=== PATIENT | male | born 1960 | race Caucasian/White ===

== ENCOUNTER 2019-01-08 19:49 | Inpatient (IN) | payer BC, OTHER ==
[~2019-01-08] VITALS: Ht 182.9 cm; Wt 95.0 kg
[2019-01-08 19:58] VITALS: Ht 182.9 cm; Wt 95.0 kg
[2019-01-08] MEDS ORDERED: IBUPROFEN 800 MG TAB PO ONE (20:00)
[2019-01-08] MEDS ORDERED: ACETAMINOPHEN 325 MG TAB PO PRN (22:30)
[2019-01-08] MEDS ORDERED: ONDANSETRON 4 MG INJ IV PRN (22:30)
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
[2019-01-09] MEDS ORDERED: ACETAMINOPHEN 325 MG TAB PO PRN
[2019-01-09] MEDS ORDERED: morphine 2 MG INJ IV PRN
[2019-01-09] MEDS ORDERED: ONDANSETRON 4 MG INJ IV PRN
[2019-01-09] MEDS ORDERED: NACL 0.9% 3 ML SYG IV SCH
[2019-01-09] MEDS ORDERED: HYDROCODONE/APAP (5/325) TAB PO PRN
[2019-01-09 00:20] VITALS: BP 106/76; PULSE 85; RESP 14
[2019-01-09] MEDS ORDERED: IBUPROFEN 800 MG TAB PO PRN (01:00)
[2019-01-09 02:30] VITALS: BP 101/58; PULSE 72; RESP 18
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
[2019-01-09 08:00] VITALS: BP 97/58; PULSE 65; RESP 19
[2019-01-09] MEDS: ENOXAPARIN 40 MG/0.4 ML SYG SC SCH (08:59)
[2019-01-09] MEDS ORDERED: ENOXAPARIN 40 MG/0.4 ML SYG SC SCH (09:00)
--- NOTE | 2019-01-09 09:40 | PN ---
Date/Time of Note Date/Time of Note DATE: 01/09/19 TIME: 09:38 Assessment/Plan VTE Prophylaxis SCD applied (from Ns): Yes Pharmacological prophylaxis: LMWH Assessment/Plan Problems: (1) Acetabular fracture Status: Acute Comment: At this time orthopedics has seen him and is made recommendations. Physical therapy is now in the room and working with him and his for the appropriate level of activity and support. If possible I will try and discharge him today. If possible home with an SCD device. Qualifiers: Encounter type: initial encounter Sublocation of acetabulum: unspecified portion of acetabulum Fracture type: closed Fracture alignment: nondisplaced Laterality: right Qualified Codes: S32.401A - Unspecified fracture of right acetabulum, initial encounter for closed fracture Result Diagram: 01/09/1944201/09/19442 Results 24hrs Laboratory Tests Test 01/09/19 04:43 White Blood Count 9.0 Red Blood Count 4.64 L Hemoglobin 14.7 Hematocrit 42.7 Mean Corpuscular Volume 92.0 Mean Corpuscular Hemoglobin 31.7 Mean Corpuscular Hemoglobin Concent 34.4 Red Cell Distribution Width 12.8 Platelet Count 173 Mean Platelet Volume 10.1 Immature Granulocytes % 0.300 Neutrophils % 72.1 Lymphocytes % 17.2 Monocytes % 9.6 Eosinophils % 0.4 Basophils % 0.4 Nucleated Red Blood Cells % 0.0 Immature Granulocytes # 0.030 Neutrophils # 6.5 Lymphocytes # 1.6 Monocytes # 0.9 Eosinophils # 0.0 Basophils # 0.0 Nucleated Red Blood Cells # 0.0 Prothrombin Time 16.1 H Prothrombin Time Ratio 1.3 INR International Normalized Ratio 1.28 Activated Partial Thromboplast Time 26.3 Sodium Level 140 Potassium Level 4.2 Chloride Level 106 Carbon Dioxide Level 26 Anion Gap 8 Blood Urea Nitrogen 27 H Creatinine 1.02 Est Glomerular Filtrat Rate mL/min > 60 Glucose Level 103 Calcium Level 8.8 Phosphorus Level 3.6 Magnesium Level 2.0 Total Bilirubin 1.2 Direct Bilirubin 0.00 Indirect Bilirubin 1.2 H Aspartate Amino Transf (AST/SGOT) 35 Alanine Aminotransferase (ALT/SGPT) 33 Alkaline Phosphatase 53 Total Protein 6.1 Albumin 3.6 Globulin 2.50 Albumin/Globulin Ratio 1.44 Subjective 24 Hr Interval Summary Free Text/Dictation Patient reports he is having pain at the site and wants to know if he can go home with the SCD device. Constitutional: no complaints Respiratory: no complaints Cardiovascular: no complaints Gastrointestinal: no complaints Genitourinary: no complaints Lymphatic: no complaints Exam/Review of Systems Exam Vitals Vital Signs Date Temp Pulse Resp B/P (MAP) Pulse Ox O2 O2 Flow FiO2 Time Delivery Rate 01/09/19 98.2 65 19 97/58 (71) 97 Room Air 08:00 Intake and Output 01/08/19 01/08/19 01/09/19 1515:00 23:00 07:00 IntakeIntake Total 700 ml OutputOutput Total 400 ml BalanceBalance 300 ml Constitutional: alert, oriented Respiratory: clear to auscultation, normal air movement Extremities: normal pulses, other (Negative Homans) Results Results 24hrs Laboratory Tests Test 01/09/19 04:43 White Blood Count 9.0 Red Blood Count 4.64 L Hemoglobin 14.7 Hematocrit 42.7 Mean Corpuscular Volume 92.0 Mean Corpuscular Hemoglobin 31.7 Mean Corpuscular Hemoglobin Concent 34.4 Red Cell Distribution Width 12.8 Platelet Count 173 Mean Platelet Volume 10.1 Immature Granulocytes % 0.300 Neutrophils % 72.1 Lymphocytes % 17.2 Monocytes % 9.6 Eosinophils % 0.4 Basophils % 0.4 Nucleated Red Blood Cells % 0.0 Immature Granulocytes # 0.030 Neutrophils # 6.5 Lymphocytes # 1.6 Monocytes # 0.9 Eosinophils # 0.0 Basophils # 0.0 Nucleated Red Blood Cells # 0.0 Prothrombin Time 16.1 H Prothrombin Time Ratio 1.3 INR International Normalized Ratio 1.28 Activated Partial Thromboplast Time 26.3 Sodium Level 140 Potassium Level 4.2 Chloride Level 106 Carbon Dioxide Level 26 Anion Gap 8 Blood Urea Nitrogen 27 H Creatinine 1.02 Est Glomerular Filtrat Rate mL/min > 60 Glucose Level 103 Calcium Level 8.8 Phosphorus Level 3.6 Magnesium Level 2.0 Total Bilirubin 1.2 Direct Bilirubin 0.00 Indirect Bilirubin 1.2 H Aspartate Amino Transf (AST/SGOT) 35 Alanine Aminotransferase (ALT/SGPT) 33 Alkaline Phosphatase 53 Total Protein 6.1 Albumin 3.6 Globulin 2.50 Albumin/Globulin Ratio 1.44 Medications Medication Current Medications Ondansetron HCl (Zofran Inj) 4 mg BRIDGE ORDER PRN IV NAUSEA/VOMITING; Start 01/08/19 at 22:30; Stop 01/09/19 at 22:29 Acetaminophen (Tylenol Tab) 650 mg ER BRIDGE PRN PO .MILD PAIN 1-3 OR TEMP; Start 01/08/19 at 22:30; Stop 01/09/19 at 22:29 IV Flush (NS 3 ml) 3 ml PER PROTOCOL IV ; Start 01/09/19 at 00:00 Ondansetron HCl (Zofran Inj) 4 mg Q6H PRN IV NAUSEA/VOMITING; Start 01/09/19 at 00:00 Acetaminophen (Tylenol Tab) 650 mg Q6H PRN PO .PAIN 1-3 OR TEMP; Start 01/09/19 at 00:00 Acetaminophen/ Hydrocodone Bitart ([place] (5/325)) 1 tab Q6H PRN PO .MOD PAIN 4- 6; Start 01/09/19 at 00:00 Acetaminophen/ Hydrocodone Bitart ([place] (5/325)) 2 tab Q6H PRN PO .SEVERE PAIN 7-10; Start 01/09/19 at 00:00 Morphine Sulfate (morphine) 2 mg Q4H PRN IV .SEVERE PAIN 7-10; Start 01/09/19 at 00:00 Enoxaparin Sodium (Lovenox) 40 mg DAILY SC Last administered on 01/09/19at 08:59; Admin Dose 40 MG; Start 01/09/19 at 09:00 Ibuprofen (Motrin) 800 mg Q6H PRN PO MILD PAIN LEVEL 1-3 Last administered on 01/09/19at 03:56; Admin Dose 800 MG; Start 01/09/19 at 01:00 NERY PATEL MD January 09, 2019 09:40
--- NOTE | 2019-01-09 13:45 | PN ---
Date/Time of Note Date/Time of Note DATE: 01/09/19 TIME: 13:35 Assessment/Plan Assessment/Plan Chief Complaint/Hosp Course 58-year-old male with acute less than 2 mm displaced right acetabular fracture involving the anterior wall and column and right sacral ala fracture. He has done better with his second session of physical therapy with touchdown weightbearing precautions. At this time I am recommending continued inpatient physical therapy to ensure that he is safe to go home with weightbearing precautions. Discharge options include going home with home health versus acute rehab unit. Consult order for acute rehab unit placed today. Touchdown weightbearing right lower extremity Pain control Patient to follow-up with orthopedic traumatologist in the next week Subjective 24 Hr Interval Summary Patient doing well No acute events overnight Pain is well controlled Exam/Review of Systems Vital Signs Vitals Vital Signs Date Temp Pulse Resp B/P (MAP) Pulse Ox O2 O2 Flow FiO2 Time Delivery Rate 01/09/19 98.2 65 19 97/58 (71) 97 Room Air 08:00 Intake and Output 01/08/19 01/08/19 01/09/19 1515:00 23:00 07:00 IntakeIntake Total 700 ml OutputOutput Total 400 ml BalanceBalance 300 ml Exam Free Text/Dictation Right lower extremity: Dressing: clean, dry, and intact, no erythema Sensation intact to light touch in a sural, saphenous, deep peroneal, superficial peroneal, medial and lateral plantar nerve distribution. Motor is intact, patient able to dorsiflex and plantarflex ankle and extend and flex great toe. Dorsalis Pedis pulse +2, Brisk capillary refill. Compartments are soft. Calves non-tender to palpation bilaterally. Results Result Diagram: 01/09/19 0443 01/09/19 0443 BREANNA BROWN MD January 09, 2019 13:45
[2019-01-09 16:25] VITALS: BP 112/69; PULSE 86; RESP 18
[2019-01-09] MEDS: ACETAMINOPHEN 500 MG TAB PO PRN (18:01)
[2019-01-09 19:20] VITALS: BP 112/71; PULSE 88; RESP 16
[2019-01-09] MEDS: HYDROCODONE/APAP (5/325) TAB PO PRN (23:28)
[2019-01-10] MEDS: HYDROCODONE/APAP (5/325) TAB PO PRN ×3 (05:40→21:34)
[2019-01-10 08:03] VITALS: BP 116/66; PULSE 87; RESP 18
--- NOTE | 2019-01-10 08:42 | PN ---
Date/Time of Note Date/Time of Note DATE: 01/10/19 TIME: 08:40 Assessment/Plan VTE Prophylaxis Risk score (from Ns)>0 risk: 7 SCD applied (from Ns): Yes Pharmacological prophylaxis: heparin Assessment/Plan Problems: (1) Acetabular fracture Status: Acute Comment: See the notes from Dr. Deshpande, of orthopedic surgery and physical therapy. Continue physical therapy and possible discharge with home physical therapy versus acute rehabilitation unit. Dr. Deshpande has supplied to the patient names of trauma orthopedic surgeons for possible follow-up including at [facility] which is close to the patient's home. Continue ongoing care, no evidence of any untoward complications. Please note in terms of general issues unrelated to this hospitalization I will be dealt with as an outpatient such as colon screening etc. Qualifiers: Encounter type: initial encounter Sublocation of acetabulum: unspecified portion of acetabulum Fracture type: closed Fracture alignment: nondisplaced Laterality: right Qualified Codes: S32.401A - Unspecified fracture of right acetabulum, initial encounter for closed fracture Result Diagram: 01/09/1944201/09/19442 Subjective 24 Hr Interval Summary Free Text/Dictation Patient reports better pain control this morning. Has been up with physical therapy, please see their note Constitutional: no complaints (No fevers chills or sweats) Respiratory: no complaints (Cough no wheezing no shortness of breath) Cardiovascular: no complaints (Chest pain no pleurisy no palpitations no orthopnea no PND) Gastrointestinal: no complaints Musculoskeletal: other (Right hip pain) Exam/Review of Systems Exam Vitals Vital Signs Date Temp Pulse Resp B/P (MAP) Pulse Ox O2 O2 Flow FiO2 Time Delivery Rate 01/10/19 98.0 87 18 116/66 95 Room Air 08:03 (83) Intake and Output 01/09/19 01/09/19 01/10/19 1515:00 23:00 07:00 IntakeIntake Total 580 ml OutputOutput Total 1000 ml 800 ml BalanceBalance -1000 ml -220 ml Constitutional: alert, oriented Respiratory: clear to auscultation, normal air movement Cardiovascular: regular rate and rhythm, nl pulses Extremities: normal pulses, other Medications Medication Current Medications IV Flush (NS 3 ml) 3 ml PER PROTOCOL IV ; Start 01/09/19 at 00:00 Ondansetron HCl (Zofran Inj) 4 mg Q6H PRN IV NAUSEA/VOMITING; Start 01/09/19 at 00:00 Acetaminophen/ Hydrocodone Bitart ([place] (5/325)) 1 tab Q6H PRN PO .MOD PAIN 4- 6 Last administered on 01/10/19at 05:40; Admin Dose 1 TAB; Start 01/09/19 at 00:00 Acetaminophen/ Hydrocodone Bitart ([place] (5/325)) 2 tab Q6H PRN PO .SEVERE PAIN 7-10; Start 01/09/19 at 00:00 Morphine Sulfate (morphine) 2 mg Q4H PRN IV .SEVERE PAIN 7-10; Start 01/09/19 at 00:00 Enoxaparin Sodium (Lovenox) 40 mg DAILY SC Last administered on 01/09/19at 08:59; Admin Dose 40 MG; Start 01/09/19 at 09:00 Ibuprofen (Motrin) 800 mg Q6H PRN PO MILD PAIN LEVEL 1-3 Last administered on 01/09/19at 03:56; Admin Dose 800 MG; Start 01/09/19 at 01:00 Acetaminophen (Tylenol Tab) 1,000 mg Q8 PRN PO MILD PAIN(1-3)OR ELEVATED TEMP Last administered on 01/09/19at 18:01; Admin Dose 1,000 MG; Start 01/09/19 at 15:00 NERY PATEL MD January 10, 2019 08:42
[2019-01-10] MEDS: ENOXAPARIN 40 MG/0.4 ML SYG SC SCH (08:55)
[2019-01-10 14:16] VITALS: BP 115/71; PULSE 90; RESP 18
[2019-01-10] MEDS: ACETAMINOPHEN 500 MG TAB PO PRN (15:06)
[2019-01-10] MEDS ORDERED: HYDROCODONE/APAP (5/325) TAB PO PRN (16:30)
[2019-01-10] MEDS ORDERED: DOCUSATE SODIUM 100 MG CAP PO ONE (18:00)
[2019-01-10] MEDS ORDERED: DOCUSATE SODIUM 100 MG CAP PO PRN (18:00)
[2019-01-10 20:00] VITALS: BP 121/68; PULSE 91; RESP 18
[2019-01-11] MEDS: HYDROCODONE/APAP (5/325) TAB PO PRN ×2 (06:20→11:26)
[2019-01-11 06:26] VITALS: BP 109/67; PULSE 67; RESP 18
[2019-01-11] MEDS: ENOXAPARIN 40 MG/0.4 ML SYG SC SCH (09:58)
--- NOTE | 2019-01-11 12:24 | PDOCDIS ---
Discharge Instructions DIAGNOSIS Discharge Diagnosis Mechanical fall with 1. Acute comminuted minimally displaced right anterior acetabular and right sacral ala fractures. 2. Acute nondisplaced right inferior pubic ramus fracture with adjacent edema/strain in the adductor musculature. 3. Low to moderate grade partial tear/strain involving the right internal and external obliques inserting at the iliac crest. Adjacent strain of the right iliacus muscle. 4. Low grade right insertional gluteus medius/minimus strain with mild to moderate overlying greater trochanteric bursitis. 5. Mild osteoarthrosis of the right hip including anterior/anterosuperior labral tear , mild adjacent chondromalacia, and small marginal osteophyte formation. 6. Mild osteoarthrosis of the left hip including anterosuperior labral tear, mild chondromalacia, and small marginal osteophytes. 7. A 2 mm left paracentral protrusion/annular fissure at L5-S1 slightly crowds the left lateral recess. CONDITION [id number] Patient Condition: [id number] Fair HOME CARE INSTRUCTIONS: [id number] Diet Instructions: [id number] Regular ACTIVITY: [id number] Activity Restrictions: [id number] Slowly Increase Activity Rest between Activity Avoid heavy lifting Do not Drive Do not operate Machinery Do not operate Power Tool Avoid Heavy Housework [id number] Activity Restrictions [id number] touchdown weight -bearing to Comment: right lower extremity. No body weight. Use [facility] FOLLOW UP/APPOINTMENTS Follow-up Plan Orthopedic surgery within 1 week; primary care physician within 3 weeks NERY PATEL MD January 11, 2019 12:24
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
[2019-01-11] MEDS ORDERED: HYDR-3601 PO (12:26)
[2019-01-11] MEDS ORDERED: ENOX40DI2 SC (12:26)
[2019-01-11] MEDS ORDERED: Acetaminophen PO (12:26)
[2019-01-11] MEDS: ACETAMINOPHEN 500 MG TAB PO PRN (13:34)
== END 2019-01-11 14:35 | disposition home health service (06) | DRG 536 ==
LOC: E/R 19:49 → EEVIPCON 19:49 → EDBD 19:49 → MS1 22:21
PROVIDERS: ADMIT Internal Medicine; ATTEND Internal Medicine
DX: S32.411A Displaced fracture of anterior wall of right acetabulum, initial encounter for closed fracture (principal); S32.19XA Other fracture of sacrum, initial encounter for closed fracture; S32.591A Other specified fracture of right pubis, initial encounter for closed fracture; M16.0 Bilateral primary osteoarthritis of hip; S32.431A Displaced fracture of anterior column [iliopubic] of right acetabulum, initial encounter for closed fracture; S39.013A Strain of muscle, fascia and tendon of pelvis, initial encounter; W05.2XXA Fall from non-moving motorized mobility scooter, initial encounter
CPT/HCPCS: 71045; 72190; 72195; 73510; 73700; 73721; 80053; 83735; 84100; 85025; 85610; 85730; 97116; 97162; 97530; J1650